=== PATIENT | female | born 1955 | race Caucasian/White ===

== ENCOUNTER → 2020-02-28 12:03 | Outpatient (BNVA) | payer BC, SELFPAY | PROVIDERS: Visit Provider Nurse Practitioner Family | DX: Z20.828 Contact with and (suspected) exposure to other viral communicable diseases (principal) | CPT/HCPCS: 87635 ==

== ENCOUNTER → 2022-03-03 15:38 | Outpatient (BNVA) | payer BC, SELFPAY | PROVIDERS: Visit Provider Emergency Medicine | DX: J02.9 Acute pharyngitis, unspecified (principal); Z20.822 Contact with and (suspected) exposure to COVID-19 | CPT/HCPCS: 87071; 87880 ==

== ENCOUNTER 2022-09-28 11:36 | Emergency (ER) | payer MEDICARE, SELFPAY ==
[2022-09-28 11:46] VITALS: BP 172/75; PULSE 70; RESP 16; TEMP 36.4; O2SAT 100
--- NOTE | 2022-09-28 11:58 | CT_ITS ---
WS: [id number] CT CERVICAL TRAUMA TECHNIQUE: Noncontrast CT of the cervical spine with coronal and sagittal reformatted images. CLINICAL INFORMATION: syncope/fall COMPARISON: None. DLP: 1280.[address] scans at [facility] use at least one of these dose optimization techniques: automated e xposure control; mA and/or kV adjustment per patient size (includes targeted exams where dose is matc hed to clinical indication); or iterative reconstruction. FINDINGS: Straightening of the normal cervical lordosis. Mild spondylitic changes. Slight anterolisthesis C3 on C4. Disc space narrowing worse at C4-C5 and C5-C6 with disc osteophyte complexes. Slight anterolisth esis C6 on C7. Normal craniocervical junction. Normal C1-C2 articulation. Dens is normal in appearance. Normal occip ital condyles. No high-grade spinal canal narrowing. Normal C1 ring. No evidence of acute fracture or dislocation. Normal prevertebral soft tissues. Carotid bulb calcification. Mastoids air cells are well aerated. CT/CT cervical spin wo con* [id number] IMPRESSION: No evidence of acute fracture or dislocation.
--- NOTE | 2022-09-28 11:58 | XR_ITS ---
WS: [id number] EXAMINATION: XR chest 1V portable [id number] REASON FOR EXAM: syncope COMPARISON: None available. ORDER DATE: 09/28/2022 11:58 AM TECHNIQUE: A single, portable frontal chest x-ray was obtained. X-RAY FINDINGS: The lungs are clear but hyperinflated Pleural spaces are clear. No pleural effusions or pneumothorax. Cardiomediastinal silhouette is normal. No evidence for pulmonary edema. Soft tissue and osseous structures are unremarkable except for lower thoracic dextroscoliosis. No tubes or lines are present. XR/XR chest 1V portable [id number] IMPRESSION: Unremarkable frontal portable chest x-ray.
--- NOTE | 2022-09-28 11:58 | ECG_ITS ---
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 Measurements Intervals [place] Rate: 73 P: 139 OR: 190 QRS: 98 QRSD: 98 T: 105 QT: 378 QTc: 418 Interpretive Statements ECTOPIC ATRIAL RHYTHM POSSIBLE LEFT ATRIAL ENLARGEMENT [-0.1mV P-WAVE IN V1/V2] BORDERLINE RIGHT AXIS DEVIATION [QRS AXIS > 90] MINIMAL ST DEPRESSION [0.025+ mV ST DEPRESSION] No previous ECG available for comparison Electronically Signed On 09-28-2022 13:59:06 CDT by Kendrick Espinosa M.D. [id number]
--- NOTE | 2022-09-28 11:58 | CT_ITS ---
WS: [id number] CT HEAD TECHNIQUE: Noncontrast CT of the head obtained from the skullbase to the vertex. CLINICAL INFORMATION: syncope/fall COMPARISON: None. DLP: 1280.[address] scans at [facility] use at least one of these dose optimization techniques: automated e xposure control; mA and/or kV adjustment per patient size (includes targeted exams where dose is matc hed to clinical indication); or iterative reconstruction. FINDINGS: No evidence of intracranial hemorrhage or mass effect. Ventricular system and basal cisterns are brown nt. Mild small vessel changes with minimal parenchymal volume loss. No extra-axial fluid collections. No evidence of mass or mass effect. Paranasal sinuses and mastoid air cells are well aerated. Trace mucosal thickening in the ethmoid air cells. Normal posterior nasopharynx. .Normal visualized soft tissues. CT/CT head wo con* [id number] IMPRESSION: 1. No evidence of intracranial hemorrhage or mass effect. 2. No acute intracranial findings.
--- NOTE | 2022-09-28 12:06 | W.ED.SYNCOPE ---
HPI - Syncope General: Chief Complaint: Head Injury Stated Complaint: LOC, Head Lac Time Seen by Provider: 09/28/22 12:00 Source: patient and family Mode of arrival: wheelchair Limitations: no limitations History of Present Illness: Patient is a nice 66-year-old female presents to ED today for evaluation of a syncopal episode and head injury. Patient states she was lying in bed when she began feeling nauseous and flushed/warm. She states she walked to the bathroom and sat down on the toilet. She states she then decided she would get a fan to sit in front of her. She states while walking to go get the fan she began developing some tunnel vision and believes she lost consciousness for only a few seconds because she remembers striking the back of her head on the floor. She sustained a very small 1 cm scalp laceration. She does not complain of a headache. She is not anticoagulated. She states symptoms did not start after positional change. She does report 1 previous episode similar several months ago. Patient states she was concerned that the nausea and flushed feeling could be symptoms of a heart attack. Patient states she never had chest pain, shortness of breath, difficulty breathing, or palpitations. Upon arrival to the ED she is asymptomatic. Blood pressure was noted to be elevated. She has no history of hypertension. MD complaint: loss of consciousness and felt faint Onset (ago): hour(s) -: second(s) Prodromal symptoms: vision changes, nausea/vomiting and other (flushed/warm feeling) Witnessed: No Injuries sustained associated with event: head Associated symptoms: Reports nausea; Deny abdominal pain, chest pain, fever(s) or headache(s) Treatments prior to arrival: none Review of Systems Const: Reports: other (warm/flushed feeling; subsided upon arrival to ED); Denies: fever(s), chills, body aches, fatigue or malaise Eyes: Denies: change in vision, blurry vision, photophobia, floaters or seeing flashes ENMT: Denies: throat pain, odynophagia, nasal discharge or nasal congestion Card: Reports: syncope and pre-syncope; Denies: chest pain, palpitations, irregular heart rhythm, edema, swelling of feet/ankles, dyspnea on exertion, orthopnea, leg pain with exertion or acrocyanosis Resp: Denies: dyspnea, productive cough, non-productive cough, pain on inspiration, hemoptysis or chest congestion GI: Reports: nausea; Denies: abdominal pain, vomiting or diarrhea : Denies: flank pain or dysuria Musc: Denies: neck pain, back pain, extremity pain or joint pain Skin/Breast: Reports: other (scalp laceration) Neuro: Denies: headache(s), numbness in extremities, weakness in extremities or sensory changes PFSH ED PFSH: Medical History History of HPV infection pap showed HPV , all clear on 10/03/2005 History of stroke 02-18-2008 History of tetanus vaccination 09-30-2008 Syncope Surgical History History of arthroscopy of knee Right- 04-13-2005 History of arthroscopy of left knee 10-26-2011 History of bunionectomy 03-13-2018 Family History Mother Cancer breast, spleen, skin, all together had 5 different types Thyroid disease Hyperthyroidism Denies family history of Diabetes Clotting disorder Chronic kidney disease (CKD) Bleeding disorder Hypertension Stroke Social History Smoking and tobacco status: never smoked Alcohol intake: current Substance/Drug Use: never Female Reproductive History: Para: 2 Spontaneous abortions: No Physical Exam Const: COMMON NORMALS: no acute distress, average body habitus, patient oriented x3, no limitations, healthy appearing, alert and well nourished ORIENTATION/CONSCIOUSNESS: Yes awake, Yes oriented to person, Yes oriented to place and Yes oriented to time HENMT: COMMON NORMALS: normocephalic and TM's normal bilaterally HEAD & SCALP: normal to inspection, normocephalic and laceration (small 1cm laceration L parietal region) FACE & SINUS: normal facial exam TYMPANIC MEMBRANE: TM's normal bilaterally Eye: COMMON NORMALS: Equal, round and reactive pupils present and EOMs intact bilaterally GENERAL EYE: appearance normal, both eyes and all related structures and normal light reflex PUPIL: Yes Equal, round and reactive pupils present DIRECT OPHTHALMOSCOPY: Yes normal light reflex Neck/C-Spine: COMMON NORMALS: full ROM GENERAL: Yes normal visual inspection CERVICAL SPINE: No pain with cervical ROM, No Cervical spine tenderness, No step off deformity and No Paracervical muscle tenderness Resp: COMMON NORMALS: normal respiratory effort and clear to auscultation bilaterally AUSCULTATION: clear to auscultation bilaterally Cardio: COMMON NORMALS: regular rate and regular rhythm RATE: regular rate RHYTHM: regular rhythm GI: COMMON NORMALS: Normal to inspection, nondistended, normoactive bowel sounds present, Soft to palpation and non-tender PALPATION: Yes Soft to palpation : COMMON NORMALS: Yes no CVA tenderness BLADDER/KIDNEY EXAM: Yes no CVA tenderness Back/Pelvis: COMMON NORMALS: no CVA tenderness, thoracic and lumbar spine normal to inspection, no thoracic nor lumbar tenderness and thoraco-lumbar ROM normal Extremity: COMMON NORMALS: normal to inspection, full ROM, capillary refill normal, no joint enlargement, no clubbing, cyanosis or edema, no calf tenderness and no pedal edema GENERAL: Yes normal exam except as noted Neuro: BILLY COMA SCALE: document GCS findings Billy coma scale eye opening: Spontaneous [place] coma scale verbal response: Orientated Billy coma scale motor response: Obey commands Billy coma scale total score: 15 COMMON NORMALS: patient oriented x3, CN's II-XII intact bilaterally, moves all extremities, no focal motor deficits, no sensory deficits noted and gait normal SENSORIUM/ORIENTATION: Yes alert, Yes oriented to person, Yes oriented to place and Yes oriented to time Skin: TRAUMA: laceration (L parietal scalp) Procedures Laceration Laceration 1: Site: scalp Size (cm): 1.0 Description: linear Depth: simple, single layer Local Anesthetic: lidocaine 1% and with epi Amount of anesthesia used (mL): 1.0 Pre-repair: wound explored and irrigated extensively Skin layer closed with: other (rad) Number of sutures: 2 Course Vital Signs: Vital signs: Vital Signs Temperature 97.5 F L 09/28/22 11:46 Pulse Rate 68 09/28/22 14:44 Respiratory Rate 16 09/28/22 14:44 Blood Pressure 102/81 09/28/22 14:44 Pulse Oximetry 98 09/28/22 14:44 Oxygen Delivery Me thod Room Air 09/28/22 11:46 MDM - Syncope Medical Decision Making Patient is a nice 66-year-old female who presents to ED today following a syncopal episode and subsequent head injury. CTs of her head and cervical spine are negative. Small parietal laceration was repaired with rad. Tetanus updated. She was originally hypertensive upon arrival. This improved without intervention. Blood work including baseline/2 hr troponins are unremarkable. Her baseline and repeat EKGs are nonischemic. UTI showing 2+ blood, 2+ leukocyte esterase, 10-15 WBCs along with 3+ bacteria. We will go ahead and treat for UTI and culture. Patient never had any complaints of chest pain, shortness of breath, difficulty breathing, palpitations. I think cardiac etiology for her syncope is unlikely. Recommend follow-up with primary care early next week. Return ED precautions given. Lab Data 09/28/22 12:27 09/28/22 12:27 Radiology Impressions Cervical Spine CT 09/28/22 11:58 IMPRESSION: No evidence of acute fracture or dislocation. Chest X-Ray 09/28/22 11:58 IMPRESSION: Unremarkable frontal portable chest x-ray. Head CT 09/28/22 11:58 IMPRESSION: 1. No evidence of intracranial hemorrhage or mass effect. 2. No acute intracranial findings. Laboratory Results WBC 7.4 10^3/uL (4.0-10.0) 09/28/22 12: RBC 4.30 10^6/uL (4.1-5.3) 09/28/22 12:27 Hgb 13.6 g/dL (11.5-15.3) 09/28/22 12:27 Hct 41.3 % (37.0-47.0) 09/28/22 12: MCV 96.0 fl (81-99) 09/28/22 12:27 MCH 31.6 pg (28.0-34.0) 09/28/22 12:27 MCHC 32.9 g/dL (30.0-36.0) 09/28/22 12: RDW 12.8 % (12.1-15.1) 09/28/22 12: Plt Count 246 10^3/cmm (130-400) 09/28/22 12: MPV 11.1 fL (7.4-10.4) H 09/28/22 12: Neut % (Auto) 76.0 % 09/28/22 12: Lymph % (Auto) 15.9 % 09/28/22 12: [place] % (Auto) 6.8 % 09/28/22 12: Eos % (Auto) 0.7 % 09/28/22 12: Baso % (Auto) 0.5 % 09/28/22 12: Neut # (Auto) 5.58 10^3/uL (1.8-7.7) 09/28/22 12: Lymph # (Auto) 1.2 10^3/uL (0.8-4.8) 09/28/22 12: [place] # (Auto) 0.5 10^3/uL (0.2-0.9) 09/28/22 12: Eos # (Auto) 0.1 10^3/uL (0.0-0.8) 09/28/22 12: Baso # (Auto) 0.0 10^3/uL (0.0-0.1) 09/28/22 12: Nucleated RBC % (auto) 0 % 09/28/22 12: Nucleated RBCs # 0.0 /100WBC 09/28/22 12: Sodium 136 mmol/L (136-145) 09/28/22 12: Potassium 4.1 mmol/L (3.5-5.1) 09/28/22 12: Chloride 98 mmol/L (98-107) 09/28/22 12: Carbon Dioxide 28 mmol/L (22-29) 09/28/22 12: Anion Gap 14.1 (5-19) 09/28/22 12: BUN 11 mg/dL (8-23) 09/28/22 12: Creatinine 0.4 mg/dL (0.5-0.9) L 09/28/22 12:27 GFR Calculation 160.2 mL/min (90-130) H 09/28/22 12: Glucose 87 mg/dL (65-115) 09/28/22 12: Calculated Osmolality 281 mOsm/kg (285-295) L 09/28/22 12:27 Calcium 9.1 mg/dL (8.5-10.5) 09/28/22 12:27 Total Bilirubin 0.3 mg/dL (0.15-1.2) 09/28/22 12:27 AST 25 U/L (0-32) 09/28/22 12:27 ALT 20 U/L (0-33) 09/28/22 12:27 Alkaline Phosphatase 95 U/L (35-105) 09/28/22 12:27 Troponin T Baseline 7 ng/L (0-10) 09/28/22 12:27 Total Protein 8.5 g/dL (6.6-8.7) 09/28/22 12:27 Albumin 5.0 g/dL (3.5-5.2) 09/28/22 12:27 Globulin 3.5 g/dL (1.3-4.6) 09/28/22 12:27 Urine Color Yellow (Yellow) 09/28/22 14:41 Urine Appearance Clear (CLEAR) 09/28/22 14:41 Urine pH 7 (5-7) 09/28/22 14:41 Ur Specific [place] 1.010 (1.005-1.030) 09/28/22 14:41 Urine Protein Neg (Negative) 09/28/22 14:41 Urine Glucose (UA) Norm (Normal) 09/28/22 14:41 Urine Ketones Negative (Negative) 09/28/22 14:41 Urine Blood 2+ (Negative) H 09/28/22 14:41 Urine Nitrate Negative (Negative) 09/28/22 14:41 Urine Bilirubin Neg (Negative) 09/28/22 14:41 Urine Urobilinogen Norm mg/dL (Negative) 09/28/22 14:41 Ur Leukocyte Esterase 2+ (Negative) H 09/28/22 14:41 Urine RBC 5-10 /hpf (0-2) H 09/28/22 14:41 Urine WBC 10-15 /hpf (0-5) H 09/28/22 14:41 Ur Squamous Epith Cells 0-4 /hpf (0-5) H 09/28/22 14:41 Amorphous Sediment Not Reportable 09/28/22 14:41 Urine Bacteria 3+ /hpf (NONE) H 09/28/22 14:41 Discharge Plan Discharge Patient Disposition: Home Clinical Impression: Acute UTI Syncope Qualifiers: Syncope type: unspecified Qualified Code(s): R55 - Syncope and collapse Laceration of scalp Qualifiers: Encounter type: initial encounter Qualified Code(s): S01.01XA - Laceration without foreign body of scalp, initial encounter Condition: Stable Prescriptions: New Macrobid 100 mg capsule 100 mg PO BID 7 Days Qty: 14 0RF Rx Instructions: must administer with a meal/food No Action multivitamin Tablet 1 tab PO DAILY zinc acetate 50 mg (zinc) Capsule 50 mg PO DAILY magnesium 250 mg Tablet 250 mg PO DAILY CoQ-10 100 mg Capsule 100 mg PO BID melatonin 1 mg Tablet 4 mg PO BEDTIME calcium citrate 250 mg calcium Tablet 250 mg PO DAILY turmeric 400 mg Capsule 400 mg PO BID Glucosamine Chondroitin 550-30-1 mg Capsule 1 cap PO BID ashwagandha root extract 300 mg Capsule 600 mg PO BEDTIME Viviscal 1 tab PO BID lovastatin 40 mg tablet 40 mg PO BEDTIME amitriptyline 25 mg tablet 12.5 - 25 mg PO BEDTIME Discharge Orders: Discharge ED (Routine); Ordered 09/28/22 Ordered By: Zahida Phoenix Referrals: Trista Duffy MD [Primary Care Provider] - Patient Instructions: Urinary Tract Infection in Women (DC), Syncope (DC) Coding Level of Care Code ED Ultrasound Specialist for Jeffy Pinto
[2022-09-28] MEDS: tetanus-diphtheria tox (adult) 0.5 mL SDV IM (12:36)
[2022-09-28 12:57] LABS: Basophils % 0.5 %; Eosinophils # 0.1 10^3/uL (0.0-0.8); Eosinophils % 0.7 %; Hematocrit 41.3 % (37.0-47.0); Hemoglobin 13.6 g/dL (11.5-15.3); Lymphocytes # 1.2 10^3/uL (0.8-4.8); Lymphocytes % 15.9 %; Mean Corpuscular HGB Conc 32.9 g/dL (30.0-36.0); Mean Corpuscular Hemoglobin 31.6 pg (28.0-34.0); Mean Platelet Volume 11.1 fL (7.4-10.4); Monocytes # 0.5 10^3/uL (0.2-0.9); Monocytes % 6.8 %; Neutrophils # 5.58 10^3/uL (1.8-7.7); Nucleated Red Blood Cells % 0 %; Platelet Count 246 10^3/cmm (130-400); Red Cell Distribution Width 12.8 % (12.1-15.1); White Blood Count 7.4 10^3/uL (4.0-10.0)
[2022-09-28 13:22] LABS: Alanine Aminotransferase 20 U/L (0-33); Alkaline Phosphatase 95 U/L (35-105); Anion Gap 14.1 (5-19); Aspartate Amino Transferase 25 U/L (0-32); Blood Urea Nitrogen 11 mg/dL (8-23); Calcium 9.1 mg/dL (8.5-10.5); Carbon Dioxide 28 mmol/L (22-29); Chloride 98 mmol/L (98-107); Globulin 3.5 g/dL (1.3-4.6); Glomerular Filtration Rate 160.2 mL/min (90-130); Glucose 87 mg/dL (65-115); Osmolality Calculated 281 mOsm/kg (285-295); Potassium 4.1 mmol/L (3.5-5.1); Sodium 136 mmol/L (136-145); Total Bilirubin 0.3 mg/dL (0.15-1.2); Total Protein 8.5 g/dL (6.6-8.7)
[2022-09-28 13:24] LABS: Troponin(5th) Baseline 7 ng/L (0-10)
--- NOTE | 2022-09-28 13:58 | ECG_ITS ---
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 Measurements Intervals [place] Rate: 67 P: 49 IN: 210 QRS: 64 QRSD: 97 T: 66 QT: 404 QTc: 427 Interpretive Statements SINUS RHYTHM WITH FIRST DEGREE AV BLOCK Compared to ECG 09/28/2022 12:04:14 First degree AV block now present Ectopic atrial rhythm no longer present ST (T wave) deviation no longer present Electronically Signed On 09-28-2022 23:40:58 CDT by Kendrick Espinosa M.D. [email or web address] [id number]
[2022-09-28 14:44] VITALS: BP 102/81; PULSE 68; RESP 16; O2SAT 98
[2022-09-28 14:57] LABS: Add Urine Microscopic? YES; Bilirubin Urine Neg (Negative); Blood Urine 2+ (Negative); Glucose Urine UA Norm (Normal); Ketones Urine Negative (Negative); Leukocyte Esterase Urine 2+ (Negative); Nitrate Urine Negative (Negative); Protein Urine Neg (Negative); Urine Appearance Clear (CLEAR); Urine Color Yellow (Yellow); Urobilinogen Urine Norm (Negative); pH Urine 7 (5-7)
[2022-09-28 14:58] LABS: Add Urine Culture? Yes; Bacteria Urine 3+ /hpf; Squamous Epithelial Cell Urine 0-4 /hpf (0-5)
[2022-09-28 15:10] LABS: Troponin 5 2HR Delta -0.8 ABS# (0-10)
[2022-09-28 15:13] VITALS: BP 131/75; PULSE 64; RESP 16; O2SAT 100
== END 2022-09-28 15:14 | disposition home or self-care (01) ==
PROVIDERS: Emergency Provider Physician Assistant; PCP Family Medicine
DX: R55 Syncope and collapse (principal); S01.01XA Laceration without foreign body of scalp, initial encounter; N39.0 Urinary tract infection, site not specified; Z86.73 Personal history of transient ischemic attack (TIA), and cerebral infarction without residual deficits; W18.39XA Other fall on same level, initial encounter; Z23 Encounter for immunization
CPT/HCPCS: 12001; 36415; 70450; 71045; 72125; 80053; 81001; 84484; 85025; 87077; 87086; 87186; 90471; 90714; 93005; 99285

== ENCOUNTER → 2022-10-07 12:09 | Outpatient (BNVA) | payer MEDICARE, SELFPAY | PROVIDERS: PCP Family Medicine; Visit Provider Nurse Practitioner Family | DX: R39.9 Unspecified symptoms and signs involving the genitourinary system (principal) | CPT/HCPCS: 81000 ==

== ENCOUNTER → 2023-03-31 14:58 | Outpatient (BNVA) | payer MEDICARE, SELFPAY | PROVIDERS: PCP Family Medicine; Visit Provider Nurse Practitioner Family | DX: N39.0 Urinary tract infection, site not specified (principal) | CPT/HCPCS: 81000; 87086 ==

== ENCOUNTER → 2023-04-23 09:20 | Outpatient (BNVA) | payer MEDICARE, SELFPAY | PROVIDERS: PCP Family Medicine; Visit Provider Family Medicine | DX: E78.2 Mixed hyperlipidemia | CPT/HCPCS: 80061 ==

== ENCOUNTER → 2023-10-25 11:24 | Outpatient (BNVA) | payer MEDICARE, SELFPAY | PROVIDERS: PCP Family Medicine; Visit Provider Nurse Practitioner Family | DX: R30.0 Dysuria (principal) | CPT/HCPCS: 81000 ==

== ENCOUNTER → 2023-11-30 15:03 | Outpatient (BNVA) | payer MEDICARE, SELFPAY | PROVIDERS: PCP Family Medicine; Visit Provider Nurse Practitioner | DX: R30.0 Dysuria (principal) | CPT/HCPCS: 81000; 87086 ==

== ENCOUNTER → 2023-12-04 09:23 | Outpatient (BNVA) | payer MEDICARE, SELFPAY | PROVIDERS: PCP Family Medicine; Visit Provider Family Medicine | DX: N39.0 Urinary tract infection, site not specified (principal) | CPT/HCPCS: 81000 ==

== ENCOUNTER → 2023-12-11 09:15 | Outpatient (BNVA) | payer MEDICARE, SELFPAY | PROVIDERS: PCP Family Medicine; Visit Provider Family Medicine | DX: K58.1 Irritable bowel syndrome with constipation (principal); E78.2 Mixed hyperlipidemia; N39.0 Urinary tract infection, site not specified; F51.01 Primary insomnia | CPT/HCPCS: 80053; 80061; 85025 ==

== ENCOUNTER → 2023-12-26 12:57 | Outpatient (BNVA) | payer MEDICARE, SELFPAY | PROVIDERS: PCP Family Medicine; Visit Provider Emergency Medicine | DX: R30.0 Dysuria (principal) | CPT/HCPCS: 81000; 87086 ==

== ENCOUNTER → 2024-11-25 10:41 | Outpatient (BNVA) | payer MEDICARE, SELFPAY | PROVIDERS: PCP Family Medicine; Referring Provider Family Medicine; Visit Provider Anesthesiology Pain Medicine | DX: M54.2 Cervicalgia (principal); M17.0 Bilateral primary osteoarthritis of knee | CPT/HCPCS: 99204 ==

== ENCOUNTER 2024-12-25 10:43 | Outpatient (CLI) | payer MEDICARE, SELFPAY ==
--- NOTE | 2024-12-25 11:00 | MR_ITS ---
WS: [id number] MRI CERVICAL SPINE NONCONTRAST HISTORY: R20.0 - Anesthesia of skin COMPARISON: CT cervical spine 09/28/2022. Technique: Multiplanar, multisequence noncontrast imaging of the cervical spine. Extremely limited evaluation of the cervical spine due to motion artifact. T1 sequences nearly nondiagnostic. C3 anterolisthesis by 3 mm. No obvious marrow edema or fracture taking into consideration the limitation. Cannot exclude cord myelomalacia. Craniocervical junction, C1 and C2 relationship, odontoid process and soft tissues are normal. C2-C3: Normal. C3-C4: No significant stenosis. Small foraminal osteophytes likely. C4-C5: Osteophytic ridging, probable small central disc protrusion. Mild bilateral foraminal stenosis due to osteophytes. C5-C6: Disc bulging and osteophytic ridging. Mild bilateral foraminal stenosis and facet arthritis. C6-C7: Central disc protrusion. No stenosis identified. Limited evaluation. C7-T1: Normal. Paraspinal soft tissue are normal. MR/MR cervical spin wo con* [id number] IMPRESSION: 1. MRI study is significantly degraded by motion artifact. 2. No high-grade central stenosis. 3. Mild bilateral foraminal stenosis at C4-5 and C5-6. 4. Small central disc protrusion at C6-7.
== END 2024-12-25 10:44 | disposition home or self-care (01) ==
LOC: RAD 10:44
PROVIDERS: PCP Family Medicine; Visit Provider Nurse Practitioner
DX: R20.0 Anesthesia of skin (principal); R20.2 Paresthesia of skin; M48.02 Spinal stenosis, cervical region; M50.223 Other cervical disc displacement at C6-C7 level; M25.78 Osteophyte, vertebrae; M50.322 Other cervical disc degeneration at C5-C6 level; M47.892 Other spondylosis, cervical region
CPT/HCPCS: 72141; 95911

== ENCOUNTER 2025-01-02 10:45 | Outpatient (CLI) | payer MEDICARE, SELFPAY ==
--- NOTE | 2025-01-02 10:45 | USCV_ITS ---
Pina Stacy Age: 69 Gender: F : 1955 Exam Date: 01/02/2025 10:56 Ordering Phys: Antonella BrayP CNC MACHINIST 2ND SHIFT Technologist: EZEQUIEL Exam Location: [facility] [place] Indication: tia, stenosis Risk Factors: Previous Vascular Surgery: Right Brachial BP: / Left Brachial BP: / Right Left Velocity (cm/s) Spectral Plaque Velocity (cm/s) Spectral Plaque Syst/Diast Broadening Syst/Diast Broadening 101.10/9.50 Prox CCA 100.00/ 12.20 102.80/15.30 Mid CCA 101.90/ 15.00 104.70/13.40 Distal CCA 108.40/ 17.20 112.10/19.20 Prox ICA 80.60 / 12.90 77.30/ 15.30 Mid ICA 98.10 / 17.30 80.20/ 17.00 Distal ICA 63.40 / 7.40 102.10 ECA 126.20 1.10 ICA/CCA 0.70 Antegrade Vertebral Antegrade 46.30/ 8.40 cm/s 58.70/ 4.40 cm/s Tri Subclavian Tri 90.50 103.9 0 FINDINGS Comparison: none available. No significant elevation of systolic or diastolic velocities. Waveforms are normal. Minimal bilateral, plaque with no elevation of velocity. CONCLUSIONS Bilateral ICA stenosis less than 50%. Mild carotid atherosclerosis. Dr. Kristi Rodriguez DO (Electronically Signed) Final Date: 02 January 2025 11:50 S
== END 2025-01-02 10:46 | disposition home or self-care (01) ==
LOC: RAD 10:49
PROVIDERS: PCP Family Medicine; Visit Provider Nurse Practitioner
DX: Z86.73 Personal history of transient ischemic attack (TIA), and cerebral infarction without residual deficits (principal); R20.0 Anesthesia of skin; R20.2 Paresthesia of skin; I65.23 Occlusion and stenosis of bilateral carotid arteries
CPT/HCPCS: 93880

== ENCOUNTER → 2025-02-03 10:07 | Outpatient (BNVA) | payer MEDICARE, SELFPAY | PROVIDERS: PCP Family Medicine; Visit Provider Family Medicine | DX: I10 Essential (primary) hypertension (principal); E78.2 Mixed hyperlipidemia; R20.0 Anesthesia of skin; R20.2 Paresthesia of skin | CPT/HCPCS: 80053; 80061; 85025 ==

== ENCOUNTER → 2025-02-18 13:40 | Outpatient (BNVA) | payer MEDICARE, SELFPAY | PROVIDERS: PCP Family Medicine; Visit Provider Nurse Practitioner | DX: U07.1 COVID-19 (principal) | CPT/HCPCS: 87426 ==